=== PATIENT | male | born 1990 | race Caucasian/White ===

== ENCOUNTER 2017-01-07 17:56 | Emergency (ER) | payer OTHER ==
[~2017-01-07] VITALS: Ht 170.2 cm; Wt 93.1 kg
[~2017-01-07 17:56] MED LIST: MOTRIN IB200 MG PO
[2017-01-07] MEDS ORDERED: PERIDEX1 ML MM (18:20)
[2017-01-07] MEDS ORDERED: ULTRAM50 MG PO (18:20)
[2017-01-07] MEDS ORDERED: CLEOCIN300 MG PO (18:20)
[2017-01-07] MEDS ORDERED: MOBIC7.5 MG PO (18:20)
[2017-01-07 18:28] VITALS: BP 158/88
== END 2017-01-07 18:30 | disposition home or self-care (01) ==
LOC: EME 17:56
DX: K04.7 Periapical abscess without sinus (principal); K02.9 Dental caries, unspecified; K05.10 Chronic gingivitis, plaque induced; F17.200 Nicotine dependence, unspecified, uncomplicated
CPT/HCPCS: 99281; 99283